=== PATIENT | female | born 1980 | race Caucasian/White ===

== ENCOUNTER 2018-09-13 14:36 | Inpatient (IN) | payer OTHER | END 2018-09-14 17:10 | disposition home or self-care (01) | LOC: SUR 14:36 → CENTRAL 09-14 05:41 | PROC: 0UT94ZL Resection of Uterus, Supracervical, Percutaneous Endoscopic Approach (ICD-10-PCS; principal; 2018-09-13 17:06) | PROC: 0UT74ZZ Resection of Bilateral Fallopian Tubes, Percutaneous Endoscopic Approach (ICD-10-PCS; 2018-09-13 17:06) | PROC: 0USG4ZZ Reposition Vagina, Percutaneous Endoscopic Approach (ICD-10-PCS; 2018-09-13 17:06) | PROC: 8E0W4CZ Robotic Assisted Procedure of Trunk Region, Percutaneous Endoscopic Approach (ICD-10-PCS; 2018-09-13 17:06) | DX: N81.4 Uterovaginal prolapse, unspecified (principal) ==